=== PATIENT | male | born 2000 | race Two or more races ===

== ENCOUNTER 2021-05-23 13:05 | Emergency (ER) | payer OTHER, MEDICAID ==
[~2021-05-23] VITALS: Ht 177.8 cm; Wt 86.2 kg
[2021-05-23] MEDS ORDERED: KETOROLAC TROMETH 30 MG/ML 1ML VIAL IV ONE (13:30)
[2021-05-23] MEDS ORDERED: TETANUS-DIPTH-ACEL PERTUSSIS 0.5ML SYR Tdap IM ONE (13:30)
[2021-05-23] MEDS ORDERED: LIDOCAINE 2%HCL (LOCAL ANESTH.) INJ 10ml MDV IJ ONE (14:45)
[2021-05-23] MEDS ORDERED: LIDOCAINE 2% (LOCAL ANESTH.) PF 5ml SDV IJ ONE (15:15)
[2021-05-23 15:29] VITALS: BP 109/77
[2021-05-23] MEDS ORDERED: HYDROcodone-ACET 5/325MG TAB PO ONE (16:00)
[2021-05-23] MEDS ORDERED: ceFAZolin 1GM/50ML 100 ML IV ONE (16:00)
[2021-05-23] MEDS ORDERED: CEPH-509 PO (17:45)
== END 2021-05-23 17:58 | disposition home or self-care (01) ==
LOC: EDBD 13:05 → ER 13:05
DX: S61.412A Laceration without foreign body of left hand, initial encounter (principal); S00.12XA Contusion of left eyelid and periocular area, initial encounter; V43.52XA Car driver injured in collision with other type car in traffic accident, initial encounter; Y93.89 Activity, other specified; Y92.410 Unspecified street and highway as the place of occurrence of the external cause; Y99.8 Other external cause status
CPT/HCPCS: 12001; 70486; 71045; 73110; 73130; 73590; 73610; 73630; 90471; 90715; 96365; 96375; 99284; J0690; J1885; J2001